=== PATIENT | male | born 1985 | race Hispanic/Latino ===

== ENCOUNTER 2024-01-27 15:05 | Emergency (ER) | payer SELFPAY ==
[2024-01-27 15:34] LABS: #Basophils 0.03 10x3/uL (0.0-0.2); #Eosinphils Less than 0.03 10x3/uL (0.0-0.7); %Basophils 0.3 % (0.0-1.0); %Eosinophils 0.2 % (0.0-10.0); %Lymphocytes 14.9 % (21.0-51.0); %Monocytes 6.3 % (0.0-10.0); %Neutrophils 78.1 % (42.0-75.0); Hematocrit 42.8 % (42.0-52.0); Hemoglobin 15.3 g/dL (14.0-18.0); Mean Corpuscular HGB CONC 35.7 g/dL (32.0-36.0); Mean Corpuscular Hemoglobin 31.7 pg (27.0-31.0); Mean Corpuscular Volume 88.8 fL (78.0-98.0); Mean Platelet Volume 10.7 fL (7.4-10.4); Platelet Count 204 10x3/uL (130-400); RBC Distribution Width 11.7 % (11.5-14.5); Red Blood Cell (RBC) Count 4.82 mill/uL (4.70-6.10)
[2024-01-27 15:48] LABS: ALT (SGPT) 41 U/L (8-55); AST (SGOT) 50 U/L (5-34); Albumin 3.7 g/dL (3.5-5.0); Alkaline Phosphatase 78 U/L (40-110); Anion Gap 15 mmol/L (10-20); BUN (Urea Nitrogen) 12 mg/dL (8.9-20.6); Bilirubin, Total 0.7 mg/dL (0.2-1.2); Calc. Creatinine Clearance 0 mL/min (70-130); Calcium 9.2 mg/dL (7.8-10.44); Carbon Dioxide 24 mmol/L (22-29); Chloride 104 mmol/L (98-107); Estimated GFR 113; Globulin 3.7 g/dL (2.4-3.5); Glucose 107 mg/dL (70-105); Magnesium 1.7 mg/dL (1.6-2.6); Potassium 3.8 mmol/L (3.5-5.1); Protein, Total 7.4 g/dL (6.0-8.3); Sodium 139 mmol/L (136-145)
[2024-01-27 15:54] LABS: Troponin I Less than 0.010 ng/mL (< 0.028)
[2024-01-27 17:02] LABS: Bacteria/HPF None Seen HPF (None Seen); Bilirubin Negative (Negative); Blood, Urine 3+ (Negative); CAUTI Indications for Culture Pelvic or flank pain; Clarity Clear (Clear); Glucose, Urine (Dipstick) Normal (Negative); Ketone, Urine Trace mg/dL (Negative); Leukocyte Negative Leu/uL (Negative); Nitrite Negative (Negative); Protein, Urine (Dipstick) 300 mg/dL (Neg-Trace); RBC/HPF 21-50 HPF (0-3); Specific Gravity, Urine 1.025 (1.002-1.036); Squamous Epithelial None Seen HPF (0-3); WBC/HPF 0-3 HPF (0-3)
[2024-01-27 17:03] LABS: Urine Culture Reflex No No
== END 2024-01-27 17:24 | disposition home or self-care (01) ==
LOC: ERS 15:05
DX: R20.2 Paresthesia of skin (principal); I10 Essential (primary) hypertension
CPT/HCPCS: 36416; 70450; 71045; 80053; 81001; 83735; 84484; 85025; 93005; 96360